=== PATIENT | male | born 1965 | race Caucasian/White ===

== ENCOUNTER → 2020-03-11 | Outpatient (CLI) | payer SELFPAY ==
[2020-03-11 19:30] LABS: ALT 30 U/L (10-49); AST 18 U/L (14-35); African American GFR (CKD) 111.8 (60.0-200.0); Albumin/Globulin Ratio 2.32 (1.60-3.17); Alkaline Phosphatase 62 U/L (41-126); Bilirubin, Conjugated <0.20 mg/dL (0.20-0.40); Carbon Dioxide 27.3 mmol/L (21.6-31.8); Chloride 106 mmol/L (96-109); Cholesterol 152 mg/dL (0-200); Globulin 1.9 g/dL (1.6-3.3); Non-African American GFR(CKD) 96.5 (60.0-200.0); Potassium 4.5 mmol/L (3.5-5.5); Sodium 141 mmol/L (135-145); Total Bilirubin 0.4 mg/dL (0.2-1.2); Total Protein 6.3 g/dL (6.2-8.2)
[2020-03-11 21:42] LABS: Hemoglobin A1C 6.9 % (4.0-6.0)
== END | disposition home or self-care (01) ==
LOC: LABWHC1 11:54
PROVIDERS: ATTEND Internal Medicine
DX: E11.9 Type 2 diabetes mellitus without complications (principal); I10 Essential (primary) hypertension; E78.5 Hyperlipidemia, unspecified
CPT/HCPCS: 36415; 80051; 80061; 80076; 82565; 83036; 84520

== ENCOUNTER 2020-04-19 09:01 | Day surgery (SDC) | payer BC, OTHER ==
[2020-04-15 12:16] VITALS: BMI 40.1
[~2020-04-19 09:01] MED LIST: DEXAMETHASONE SOD PHOSPHATE 4 MG/ML 1 ML VIAL IV ONE; HYDROmorphone 0.5 MG/0.5 ML SYRINGE IVP PRN; LACTATED RINGERS 1,000 ML IV SCH; MIDAZOLAM 2 MG/2 ML VIAL IV PRN; ONDANSETRON 4 MG/2 ML VIAL IVP ONE; Pre Op ABX Message 1 EACH MISC MISCELLANE ONE; SCOPOLAMINE 1.5MG/72HR PATCH TRANSDERM ONE
[2020-04-19 09:16] VITALS: TEMP 97.5
[2020-04-19] MEDS ORDERED: LIDOCAINE 1% (10MG/ML) FOR IV START INTRADERMA ONE (09:33)
[2020-04-19 09:37] LABS: Glucose,Whole Blood 121 mg/dL (75-99)
[2020-04-19] MEDS ORDERED: KETAMINE 10 MG/ML 20 ML VIAL ONE (10:18)
[2020-04-19] MEDS ORDERED: PROPOFOL 10 MG/ML 20 ML VIAL IV ONE (10:18)
[2020-04-19] MEDS ORDERED: fentaNYL (PF) 50 MCG/ML 2 ML AMP ONE (10:18)
[2020-04-19] MEDS ORDERED: MIDAZOLAM 2 MG/2 ML VIAL ONE (10:18)
[2020-04-19] MEDS ORDERED: SODIUM CHLORIDE 0.9% 50 ML with ceFAZolin 2,000 MG IV ONE ×2 (10:29)
[2020-04-19] MEDS ORDERED: LIDOCAINE 1%-EPI 1:100,000 20 ML VIAL SQ ONE (10:35)
--- NOTE | 2020-04-19 11:06 | P.OP ---
Date of Procedure: 04/19/20 Preoperative Diagnosis: Soft tissue mass right buttock Postoperative Diagnosis: Sebacous cyst Procedure(s) Performed: Rxcision of soft tissue mass right buttock Anesthesia: MAC Surgeon: Ángel Duarte Estimated Blood Loss (ml): 3 Condition: stable Description of Procedure: Patient is brought operative suite this in the left lateral venous position underwent sedation per department of anesthesia prepped and draped usual sterile fashion timeout performed correct patient correct procedure correct site was verified local anesthetic was used to anesthetize skin and subcutaneous tissues directly over the soft tissue mass 6 cm incision was made directly over the mass and carried down in the soft tissue the mass was completely excised it was consistent with a large sebaceous cyst. It measured 5 cm x 5 cm. Hemostasis was achieved the wound was irrigated and closed with 30 subdermal Vicryl followed by 2-0 interrupted nylon sutures. Sterile dressing was applied patient artery procedure well no apparent complications Plan - Discharge Summary Discharge Rx Participant: No New Discharge Prescriptions: New HYDROcodone/APAP 5-325MG [[place] 5-325] 1 tab PO Q6HR PRN 3 Days #12 tab PRN Reason: Pain No Action lisinopriL 40 mg PO DAILY Atorvastatin [Lipitor] 20 mg PO HS metFORMIN HCL [Glucophage] 1,000 mg PO BID Metoprolol Succinate [Toprol XL] 50 mg PO BID Ubidecarenone [Co Q-10] 100 mg PO DAILY Testboost Er 1 tablet PO DAILY Multivit-Min/FA/Lycopen/Lutein [Centrum Silver Men Tablet] 1 each PO DAILY Empagliflozin/Linagliptin [Glyxambi 25 mg-5 mg Tablet] 1 each PO DAILY Aspirin [[place] Aspirin EC] 81 mg PO DAILY Discharge Medication List Aspirin [[place] Aspirin EC] 81 mg PO DAILY 04/15/20 [History] Atorvastatin [Lipitor] 20 mg PO HS 04/15/20 [History] Empagliflozin/Linagliptin [Glyxambi 25 mg-5 mg Tablet] 1 each PO DAILY 04/15/20 [History] Metoprolol Succinate [Toprol XL] 50 mg PO BID 04/15/20 [History] Multivit-Min/FA/Lycopen/Lutein [Centrum Silver Men Tablet] 1 each PO DAILY 04/15/20 [History] Testboost Er 1 tablet PO DAILY 04/15/20 [History] Ubidecarenone [Co Q-10] 100 mg PO DAILY 04/15/20 [History] lisinopriL 40 mg PO DAILY 04/15/20 [History] metFORMIN HCL [Glucophage] 1,000 mg PO BID 04/15/20 [History] HYDROcodone/APAP 5-325MG [[place] 5-325] 1 tab PO Q6HR PRN 3 Days #12 tab 04/19/20 [Rx] Follow up Appointment(s)/Referral(s): Ángel Duarte DO [Doctor of Osteopathic Medicine] - 2 Weeks Activity/Diet/Wound Care/Special Instructions: Activity as tolerated, dressing can come off tomorrow, keep wound clean and dry Discharge Disposition: HOME SELF-CARE
[2020-04-19] MEDS ORDERED: HYDROcodone/APAP 5-325MG 1 EACH TAB ONE (11:36)
[2020-04-19] MEDS ORDERED: HYDROcodone/APAP 5-325MG 1 EACH TAB PO ONE (11:39)
[2020-04-19 12:03] VITALS: BP 110/71; PULSE 82; RESP 16
== END 2020-04-19 12:35 | disposition home or self-care (01) ==
LOC: OR 09:01
PROVIDERS: ATTEND Student in an Organized Health Care Education/Training Program
DX: L72.0 Epidermal cyst (principal); E11.9 Type 2 diabetes mellitus without complications; I10 Essential (primary) hypertension; E78.5 Hyperlipidemia, unspecified; G47.33 Obstructive sleep apnea (adult) (pediatric); E66.01 Morbid (severe) obesity due to excess calories; Z98.890 Other specified postprocedural states; Z90.49 Acquired absence of other specified parts of digestive tract; Z79.82 Long term (current) use of aspirin; Z79.899 Other long term (current) drug therapy; Z79.84 Long term (current) use of oral hypoglycemic drugs; Z99.89 Dependence on other enabling machines and devices; Z68.41 Body mass index [BMI] 40.0-44.9, adult; Z87.19 Personal history of other diseases of the digestive system; Z82.49 Family history of ischemic heart disease and other diseases of the circulatory system
CPT/HCPCS: 88304; 11406; J2250; J1100; J2405; J0690; J3010; J2704